=== PATIENT | male | born 1945 | race Caucasian/White ===

== ENCOUNTER → 2023-12-04 12:00 | Outpatient (REF) | payer MEDICARE, OTHER, SELFPAY | LOC: CLAB 12:00 | PROVIDERS: ATTENDING PHYSICIAN Surgery | DX: Z87.19 Personal history of other diseases of the digestive system (principal) | CPT/HCPCS: 88305 ==

== ENCOUNTER → 2024-07-05 08:40 | Outpatient (REF) | payer MEDICARE, OTHER, SELFPAY | LOC: EMG 08:40 | PROVIDERS: ATTENDING PHYSICIAN Orthopaedic Surgery; FAMILY PHYSICIAN Family Medicine | DX: G56.01 Carpal tunnel syndrome, right upper limb (principal) | CPT/HCPCS: 95886; 95909 ==